=== PATIENT | male | born 1945 | race Caucasian/White ===

== ENCOUNTER 2025-06-29 11:44 | Observation (INO) | payer MEDICARE, SELFPAY ==
[2025-06-28 23:46] VITALS: BP 128/69
[2025-06-29] VITALS (7 sets, daily range): BP systolic 111–142; BP diastolic 61–76; PULSE 64–66; O2SAT 97; BMI 21.5; BMI 20.3
[2025-06-29 02:51] LABS: Hematocrit 37.7 % (39.0-52.0); Hemoglobin 12.3 g/dL (13.0-18.0); Mean Corp Hgb Conc. 32.6 g/dL (33.0-37.0); Mean Corpuscular Volume 92.4 fL (80.0-94.0); Nucleated Red Blood Cells % 0 % (-); Platelet Count 358 10^3/uL (130-400); Red Cell Dist. Width 13.9 % (11.5-14.5)
[2025-06-29 03:17] LABS: Blood Urea Nitrogen 18 mg/dl (9-20); Calcium 9.5 mg/dl (8.4-10.2); Carbon Dioxide 25 mmol/L (22-30); Chloride 107 mmol/L (98-107); Estimated Creatinine Clearance 50 ml/min; Glucose 96 mg/dl (70-99); Potassium 4.6 mmol/L (3.5-5.1); Sodium 138 mmol/L (135-145); eGFR > 60.00
--- NOTE | 2025-06-29 03:54 | ED.GENMED ---
History of Present Illness
<Griffin Clemens Jr., PA-C - Last Filed: 06/30/25 18:12>
General
Chief Complaint: Fall
Source: patient
Exam Limitations: none
Time Seen by Provider: 06/29/25 02:04
Nursing documentation reviewed up to this point in time: agreed with
History of Present Illness
History of Present Illness:
79-year-old male with past medical history of dementia CAD ambulatory dysfunction presenting to the emergency department today after a fall getting off the train today with his son hitting his right hip difficulty ambulating recently. Trouble
ambulating at baseline. Son requesting placement as well at this point.
Review of Systems
<Griffin Clemens Jr., PA-C - Last Filed: 06/30/25 18:12>
Review of Systems
Allergies reviewed?: Yes
All Other Systems: ROS reviewed and negative except as documented in HPI and ROS
Phy Exam
<Griffin Clemens Jr., PA-C - Last Filed: 06/30/25 18:12>
Physical Exam
Physical Exam:
GENERAL: Alert , in no apparent distress
EYE: pupils equal and reactive
NECK: Supple, no significant adenopathy.
ENT: o/p clr, mmm.
CARDIAC: Regular rate and rhythm .
LUNGS: Clear breath sounds bilaterally, no acute respiratory distress, no wheezes/rales/rhonchi
ABDOMEN: Soft, without focal tenderness, no r/g, no cvat
NEUROLOGICAL: Alert and oriented, no focal neuro deficits
SKIN: Warm and dry, skin intact.
MUSCULOSKELETAL: No edema, well perfused.
PSYCH: Normal and appropriate interaction.
Course
<Griffin Clemens Jr., PA-C - Last Filed: 06/30/25 18:12>
Orders/Labs/Results
Orders:
Orders
06/29/25 00:10
CR Hip - RT w/wo Pel 2-3 Vw* Urgent
Reason For Exam: Fall
Include a pelvis x-ray?: Yes
06/29/25 02:22
CT Pelvis W/o Iv Contrast Urgent
Comment:
Reason For Exam: right hip pain, cant ambulate, eval for occult fx
Physical Therapy Consult [Pt Eval And Treat] Urgent
Activity Level: Ambulate
06/29/25 02:44
BMP [Basic Metabolic Panel] Urgent
CBC/With Diff [Complete Blood Count/With Diff] Urgent
Magnesium Urgent
Comment: ADD ON
TSH Reflex To Free T4 Urgent
Comment: ADD ON
Vitamin B12 Urgent
Comment: ADD ON
06/29/25 04:45
Case Management Consult ONCE
Case Management Consult: Discharge Planning
06/29/25 Breakfast
Regular
At Your Request: Full Participation
Does patient need a safe tray?: No
06/29/25 09:14
Occupational Therapy Consult [Ot Eval And Treat] Urgent
06/29/25 Lunch
Regular
At Your Request: Limited, Application Support Developer Required
Does patient need a safe tray?: No
06/29/25 11:02
Admit/Transfer Patient As Directed
Co-Sign Provider:
Level of Care: Observation services
Assign to:: Medical/Surgical
Physician / Group: lizett ordoñez
Diagnosis: weakness, falls
Reason for Hospitalization: weakness, falls
Expected length of stay greater than two midnights?: Yes
ELOS- Estimated Length of Stay in days: 2
PRN Pain Medication Management As Directed
May give lesser potent ordered pain med per pt: Yes
preference::
Protocol:: Medication orders for pain may be administered in a
manner that supports deferring to patient preference
when the pt is:
- Requesting an ordered lesser potent pain medication.
Least to most potent pain medications are defined
as: acetaminophen < NSAID < tramadol < opioids
(morphine, oxycodone, hydromorphone).
- Requesting a lesser dose of the same medication IF
ORDERED.
- Requesting a less intrusive route of administration
if both routes are prescribed by the provider (PO <
IV).
06/29/25 11:04
Code Status As Directed
Resuscitation Status: Full Code
06/29/25 11:08
Add On- LAB Routine
Tests Added?: TSH w/ reflex T4, B12 level, Mg level
06/29/25 11:09
EKG [Electrocardiogram (*1)] Routine
Reason for Study: QTc Monitoring
06/29/25 11:59
Acetaminophen [Tylenol] 650 mg PO Q4HPRN PRN
Bisacodyl [Dulcolax] 10 mg RECTAL [id number] PRN
Docusate W/Senna [Senokot-S] 1 tablet PO BIDPRN PRN
Lidocaine [Lidocaine 4% Patch] 2 patch TOPICAL DAILY
Apply Lidocaine patch(s) to:: R hip, back
Ondansetron Injectable [Zofran] 4 mg IV Q6HPRN PRN
Oxycodone [Roxicodone] 5 mg PO Q4HPRN PRN
Polyethylene Glycol Powder [Miralax] 17 grams PO DAILYPRN PRN
06/29/25 11:59
Activity As Directed
Activity Level: As Tolerated
Vital Signs As Directed
Frequency: Per unit guidelines
DX Deep Vein Thrombosis Video Routine
06/29/25 18:00
Enoxaparin Sodium [Lovenox] 40 mg SC QPM
Abnormal Lab Results
06/29/25
02:44
RBC 4.08 L 10^6/uL
(4.70-6.10)
Hgb 12.3 L g/dL
(13.0-18.0)
Hct 37.7 L %
(39.0-52.0)
MCHC 32.6 L g/dL
(33.0-37.0)
Absolute Monos (auto) 0.9 H 10^3/uL
(0.1-0.6)
Lymphocytes % 16.4 L %
(20.5-51.1)
Monocytes % 12.1 H %
(1.7-9.3)
Magnesium 2.4 H mg/dl
(1.6-2.3)
06/29/25 02:44
06/29/25 02:44
Vital Signs
Initial and Last Documented VS:
Initial Vital Signs
Temp Pulse Resp BP Pulse Ox
97.4 F 75 16 128/69 99
06/28/25 23:46 06/28/25 23:46 06/28/25 23:46 06/28/25 23:46 06/28/25 23:46
Last Documented Vital Signs
Temp Pulse Resp BP Pulse Ox
98.2 F 70 18 119/55 98
06/30/25 11:00 06/30/25 11:00 06/30/25 11:00 06/30/25 11:00 06/30/25 11:00
<Dony Corrales, DO - Last Filed: 06/29/25 09:54>
Orders/Labs/Results
Orders:
Orders
06/29/25 00:10
CR Hip - RT w/wo Pel 2-3 Vw* Urgent
Reason For Exam: Fall
Include a pelvis x-ray?: Yes
06/29/25 02:22
CT Pelvis W/o Iv Contrast Urgent
Comment:
Reason For Exam: right hip pain, cant ambulate, eval for occult fx
Physical Therapy Consult [Pt Eval And Treat] Urgent
Activity Level: Ambulate
06/29/25 02:44
BMP [Basic Metabolic Panel] Urgent
CBC/With Diff [Complete Blood Count/With Diff] Urgent
Magnesium Urgent
Comment: ADD ON
TSH Reflex To Free T4 Urgent
Comment: ADD ON
Vitamin B12 Urgent
Comment: ADD ON
06/29/25 04:45
Case Management Consult ONCE
Case Management Consult: Discharge Planning
06/29/25 Breakfast
Regular
At Your Request: Full Participation
Does patient need a safe tray?: No
06/29/25 09:14
Occupational Therapy Consult [Ot Eval And Treat] Urgent
06/29/25 Lunch
Regular
At Your Request: Limited, Application Support Developer Required
Does patient need a safe tray?: No
06/29/25 11:02
Admit/Transfer Patient As Directed
Co-Sign Provider:
Level of Care: Observation services
Assign to:: Medical/Surgical
Physician / Group: lizett ordoñez
Diagnosis: weakness, falls
Reason for Hospitalization: weakness, falls
Expected length of stay greater than two midnights?: Yes
ELOS- Estimated Length of Stay in days: 2
PRN Pain Medication Management As Directed
May give lesser potent ordered pain med per pt: Yes
preference::
Protocol:: Medication orders for pain may be administered in a
manner that supports deferring to patient preference
when the pt is:
- Requesting an ordered lesser potent pain medication.
Least to most potent pain medications are defined
as: acetaminophen < NSAID < tramadol < opioids
(morphine, oxycodone, hydromorphone).
- Requesting a lesser dose of the same medication IF
ORDERED.
- Requesting a less intrusive route of administration
if both routes are prescribed by the provider (PO <
IV).
06/29/25 11:04
Code Status As Directed
Resuscitation Status: Full Code
06/29/25 11:08
Add On- LAB Routine
Tests Added?: TSH w/ reflex T4, B12 level, Mg level
06/29/25 11:09
EKG [Electrocardiogram (*1)] Routine
Reason for Study: QTc Monitoring
06/29/25 11:59
Acetaminophen [Tylenol] 650 mg PO Q4HPRN PRN
Bisacodyl [Dulcolax] 10 mg RECTAL [id number] PRN
Docusate W/Senna [Senokot-S] 1 tablet PO BIDPRN PRN
Lidocaine [Lidocaine 4% Patch] 2 patch TOPICAL DAILY
Apply Lidocaine patch(s) to:: R hip, back
Ondansetron Injectable [Zofran] 4 mg IV Q6HPRN PRN
Oxycodone [Roxicodone] 5 mg PO Q4HPRN PRN
Polyethylene Glycol Powder [Miralax] 17 grams PO DAILYPRN PRN
06/29/25 11:59
Activity As Directed
Activity Level: As Tolerated
Vital Signs As Directed
Frequency: Per unit guidelines
DX Deep Vein Thrombosis Video Routine
06/29/25 18:00
Enoxaparin Sodium [Lovenox] 40 mg SC QPM
Abnormal Lab Results
06/29/25
02:44
RBC 4.08 L 10^6/uL
(4.70-6.10)
Hgb 12.3 L g/dL
(13.0-18.0)
Hct 37.7 L %
(39.0-52.0)
MCHC 32.6 L g/dL
(33.0-37.0)
Absolute Monos (auto) 0.9 H 10^3/uL
(0.1-0.6)
Lymphocytes % 16.4 L %
(20.5-51.1)
Monocytes % 12.1 H %
(1.7-9.3)
Magnesium 2.4 H mg/dl
(1.6-2.3)
06/29/25 02:44
06/29/25 02:44
Vital Signs
Initial and Last Documented VS:
Initial Vital Signs
Temp Pulse Resp BP Pulse Ox
97.4 F 75 16 128/69 99
06/28/25 23:46 06/28/25 23:46 06/28/25 23:46 06/28/25 23:46 06/28/25 23:46
Last Documented Vital Signs
Temp Pulse Resp BP Pulse Ox
98.2 F 70 18 119/55 98
06/30/25 11:00 06/30/25 11:00 06/30/25 11:00 06/30/25 11:00 06/30/25 11:00
<Griffin Clemens Jr., PA-C - Last Filed: 06/30/25 18:12>
MDM/Problems Addressed
MDM/Problems Addressed:
79-year-old male presenting to the emergency department today with concerns of right hip pain after fall. Son also concerned that he has difficulty ambulating at baseline and is unsafe to go home. Here x-ray without signs of fracture. Patient had
a CT scan due to his significant difficulty with ambulation.
<Griffin Clemens Jr., PA-C - Last Filed: 06/30/25 18:12>
*Pulse Oximetry
SaO2: 99
Oxygen Mode of Delivery: Room air
Patient hypoxic: no (98)
*Critical Care Note
Total Time (30-74mins, 75-104mins- exclusive of procedures): Not Applicable
<Dony Corrales DO - Last Filed: 06/29/25 09:54>
Update Note
Update Note:
Case management unable to place from the emergency department. Will admit for placement
ED Attending Note
<Griffin Clemens Jr., PA-C - Last Filed: 06/30/25 18:12>
-
Portions of this chart may have been created with voice recognition software.� Occasional wrong word or��sound alike� substitutions may have occurred due to the inherent limitations of voice recognition software.
<Dony Corrales DO - Last Filed: 06/29/25 09:54>
ED Attending Note
Patient seen and examined by attending physician: Yes
I performed the substantive portion of visit, reviewed & personally made and approve the management plan that is documented in note by myself or COLE.: Yes
ED Attending Note:
I have seen and evaluated the patient with a [id number] encounter. I have spoken to the advance practicer provider and involved in the medical history, the physical exam, medical decision making.
Evaluation and management service: agree unless noted differently below.
Results interpretation: agree unless noted differently below.
Focused HPI: 79-year-old male presenting for evaluation of generalized weakness and fatigue and recent falls. He just moved up from [place] to live with family but family currently having trouble caring for him in the state
Physical exam: Sitting in bed comfortably. No acute distress
Medical Decision Making: Workup is negative from a trauma standpoint. Patient is well-appearing and nontoxic. Family is considering palliative care for short-term rehab until he can live with family. Will have case management and PT evaluate
Discharge Plan
Departure
Patient Disposition: Admit
Date of Disposition: 06/29/25
Time of Disposition: 09:54
Admit to: Med/Surg
Presentation/result/management discussed w/ accepting MD/DO: Hospitalist
Discharge Problem:
Weakness
Interventions
Interventions:
*Risk Screen - Suicide Last Done: 06/29/25 12:00
*General Assessment Last Done: 06/29/25 15:47
*ED COVID-19 Vaccine History Last Done: 06/29/25 12:00
*Nursing Disposition Last Done: 06/29/25 15:47
ED-Musculoskeletal Assessment Last Done: 06/29/25 00:57
ED- Neurological Assessment Last Done: 06/29/25 00:57
ED-Skin Assessment Last Done: 06/29/25 00:57
Discharge Date and Time
Discharge Date/Time: 06/29/25 15:49
--- NOTE | 2025-06-29 10:49 | CM ---
Addendum entered by Maria Del Rosario Rodriguez 06/29/25 17:30:
Per [facility] office, patient was admitted to SNF in April 2025; discharge transition date was 06/12/2025; Medicare coverage ended 06/14/2025
Still no response from text message sent to sonDelonte, @ #[phone]. Uable to leave voice mail; mail box full
Addendum entered by Maria Del Rosario Rodriguez 06/29/25 15:39:
Still unable to connect with son via phone; unable to leave a message.
Sent SNF referrals to [facility]; self pay if son is agreeable. If son is not willing/able to self pay, CM will offer Home Health/PT/OT; or contact '[facility]' liaison to assist with placement
Addendum entered by Maria Del Rosario Rodriguez 06/29/25 14:36:
Several attempts made to contact patient's son via phone; no answer; mail box full; unable to leave a message
Original Note:
Met with patient and son, Delonte, at the bedside in the ED
Pharmacy verified: [facility] @ [id number] [facility]
Verified legal address: [address] [place] [address] [id number], [place] [id number]
Patient's home is in [place]; Son was in the process of relocating him to [place], when he had a Fall.
Per son, patient was recently discharged from [facility] in [place], [place].
PLOF: patient ambulated with a cane or rolling walker; required assistance with personal care and ADLs.
Offered son the option of speaking with [facility] liasion to assist with placement.
In the event SNF was recommended, a list of SNF options were identified; Son's preferences are [facility]
Per Attending, admission status is Observation; patient does not quality for Medicare Waiver Program; and stable for discharge once placement can be arranged
Was unable to connect with patient's son via phone; he left the hospital; mailbox full; unable to leave a voice mail.
Sent him a text to call case managers to discuss discharge planning
Discharge plan to be determined; Case Management will support placement coordination once determined
--- NOTE | 2025-06-29 10:58 | HPS.HSE ---
Family Physician
-
Family Physician: Musa Watts DO
Chief Complaint
-
Weakness, falls
History of Present Illness
79-year-old male with a past medical history of prostate cancer, dementia, hypertension, hyperlipidemia, CAD, and ambulatory dysfunction was brought in by his son for right hip pain and weakness following a mechanical fall. Pelvis CT negative for
right hip fracture. Patient moved up to [place] from [place] to live with his son. His son did not know how weak he was, and brought him to the ER to be checked out after mechanical fall. Son requesting placement. Patient apparently was
recently released from a long term rehab in [place]. He does complain of new onset right hip pain and lower back pain since the fall. He denies chest pain, denies shortness of breath. No abdominal pain. No fever, no vomiting.
Medical History
Past Medical History
Past Medical History: Reports Other
Additional Past Medical History:
Prostate cancer
Essential hypertension
Hyperlipidemia
Coronary artery disease
Dementia
Ambulatory dysfunction
Past Surgical History: Reports Other
Additional Past Surgical History:
Left hip surgery
Social History
Alcohol: None
Drug: None
Family History
Family History: Not pertinent
Allergies / Home Medications
Allergies reflects when Allergies were last updated in [employer].
Home Medications with original date entered in [employer]
Allergy/Medication List:
Allergies
Allergy/AdvReac Type Severity Reaction Status Date / Time
No Known Allergies Allergy Unverified 06/29/25 10:02
Home Medications Table - record
�Medication �Instructions �Recorded �Confirmed
amlodipine 5 mg tablet 5 mg PO DAILY 06/29/25
ascorbic acid (vitamin C) 250 mg 250 mg PO DAILY 06/29/25
tablet (Vitamin C)
aspirin 325 mg tablet 325 mg PO DAILY 06/29/25
atorvastatin 40 mg tablet 40 mg PO DAILY 06/29/25
cholecalciferol (vitamin D3) 25 25 mcg PO DAILY 06/29/25
mcg (1,000 unit) tablet (Vitamin
D3)
cyanocobalamin (vitamin B-12) 500 500 mcg PO DAILY 06/29/25
mcg tablet (Vitamin B-12)
enzalutamide 40 mg tablet (Xtandi) 80 mg PO DAILY 06/29/25
tamsulosin 0.4 mg capsule 0.4 mg PO DAILY 06/29/25
Review of Systems
-
Unable to obtain full review of systems at this time due to: Dementia
Physical Exam
Vital Signs
Vital Signs
Temp Pulse Resp BP Pulse Ox
97.4 F 71 13 140/62 99
06/28/25 23:46 06/29/25 06:30 06/29/25 06:15 06/29/25 02:00 06/29/25 03:55
Physical Exam
General: No Apparent Distress
HEENT: NormoCephalic, Anicteric and Moist mucous membranes
Respiratory: Clear
Cardiac: S1/S2
GI: Soft, Non Tender, Non Distended and Normal Bowel Sounds
Musculoskeletal: No Clubbing, No Cyanosis and No Edema
Neuro: Awake, Alert and Oriented
Psych: Calm
Laboratory Results
-
06/29/25 02:44
06/29/25 02:44
Impression/Plan
-
HPI: 79-year-old male with a past medical history of prostate cancer, dementia, hypertension, hyperlipidemia, CAD, and ambulatory dysfunction was brought in by his son for right hip pain and weakness following a mechanical fall. Pelvis CT negative
for right hip fracture. Patient moved up to [place] from [place] to live with his son. His son did not know how weak he was, and brought him to the ER to be checked out after mechanical fall. Son requesting placement. Patient apparently was
recently released from a long term rehab in [place]. He does complain of new onset right hip pain and lower back pain since the fall. He denies chest pain, denies shortness of breath. No abdominal pain. No fever, no vomiting.
#Ambulatory dysfunction
#Weakness
#Mechanical falls
Pelvis CT negative for right hip fracture
Son requesting placement
PT/OT, case management on board
#Dementia, unclear type
Supportive care
#Essential hypertension
Continue amlodipine 5 mg daily
#Prostate cancer
Unclear what treatment he has had for this, pelvis CT does show 6.3 mm bladder calculus versus exophytic calcified nodule associated with the base of the prostate gland
Continue Xtandi, Flomax, outpatient follow-up
#Coronary artery disease
#Hyperlipidemia
Continue aspirin, statin
DVT prophylaxis�subcu Lovenox
Full code
Called son twice, he did not sisal picker, and unable to leave a message as the voicemail box was full
Total time spent to see the patient on the floor, examine the patient, review data and lab results, discuss treatment plan with patient, nursing staff around 65 minutes.
[2025-06-29 12:09] LABS: Magnesium 2.4 mg/dl (1.6-2.3)
[2025-06-29] MEDS: LIDOCAINE 4% PATCH 2 PATCH TOPICAL (12:50)
[2025-06-29 13:14] LABS: Vitamin B12 503 pg/ml (239-931)
[2025-06-29] MEDS: LIPITOR 40 MG PO (17:58)
[2025-06-29] MEDS: FLOMAX 0.4 MG PO (17:58)
[2025-06-29] MEDS: NORVASC 5 MG PO (17:59)
[2025-06-29] MEDS: LOVENOX 40 MG SC (17:59)
[2025-06-30] MEDS: LIPITOR 40 MG PO (08:42)
[2025-06-30] MEDS: FLOMAX 0.4 MG PO (08:42)
[2025-06-30] MEDS: NORVASC 5 MG PO (08:42)
[2025-06-30] MEDS: LIDOCAINE 4% PATCH 2 PATCH TOPICAL (08:42)
--- NOTE | 2025-06-30 09:05 | W.PN.HOSP.TC ---
Today's Communication/Plan
-
Discharge to short-term rehab when bed available
Assessment / Plan
Assessment / Plan
HPI: 79-year-old male with a past medical history of prostate cancer, dementia, hypertension, hyperlipidemia, CAD, and ambulatory dysfunction was brought in by his son for right hip pain and weakness following a mechanical fall. Pelvis CT negative
for right hip fracture. Patient moved up to [place] from [place] to live with his son. His son did not know how weak he was, and brought him to the ER to be checked out after mechanical fall. Son requesting placement. Patient apparently was
recently [facility] a [facility] in [place]. He does complain of new onset right hip pain and lower back pain since the fall. He denies chest pain, denies shortness of breath. No abdominal pain. No fever, no vomiting.
#Ambulatory dysfunction
#Weakness
#Mechanical falls
#Lower back pain and right hip pain from fall
Pelvis CT negative for right hip fracture, continue lidocaine patches scheduled and Tylenol as needed
Son requesting placement. PT/OT, case management on board
Discharge to short-term rehab when bed available
#Dementia, unclear type
Supportive care
#Essential hypertension
Continue amlodipine 5 mg daily
#Prostate cancer
Unclear what treatment he has had for this, pelvis CT does show 6.3 mm bladder calculus versus exophytic calcified nodule associated with the base of the prostate gland
Continue Xtandi, Flomax, outpatient follow-up
#Coronary artery disease
#Hyperlipidemia
Continue aspirin, statin
DVT prophylaxis�subcu Lovenox
Full code
Updated son at bedside 06/30
Total time spent to see the patient on the floor, examine the patient, review data and lab results, discuss treatment plan with patient, nursing staff around 40 minutes.
Physical Exam
General: No acute distress
HEENT: Normocephalic, Atraumatic, EOMI, MMM
Respiratory: Clear to Auscultation bilaterally
Cardiac: Normal S1/S2, Regular Rate and Rhythm
GI: Soft, Nontender, Nondistended, Normal Bowel Sounds
Extremities: No Clubbing, Cyanosis, or Edema
Neuro: Pleasantly confused
Psych: Calm, Cooperative
Anticipated Discharge: Within 24 hours
Subjective/Interval History
-
Date of Service: June 30, 2025
Patient reports that the lidocaine patch is helping his lower back pain and his right hip pain. He denies chest pain, denies shortness of breath. No fever, no vomiting.
Objective Data
-
Vital Signs:
Vital Signs
Temp Pulse Resp BP Pulse Ox
98.1 F 64 18 111/61 97
06/29/25 23:00 06/29/25 23:00 06/29/25 23:00 06/29/25 23:00 06/29/25 23:00
I&O
06/29/25 06/30/25 07/01/25
06:59 06:59 06:59
Intake Total 240 / 240
Balance 240 / 240
[2025-06-30 09:30] VITALS: BP 101/59; BP 110/52; BP 111/46
[2025-06-30 11:00] VITALS: BP 119/55
--- NOTE | 2025-06-30 11:22 | CM ---
science manager met with patient and son at bedside, patient's son states that patient was in a skilled facility in [place] for 3 weeks and stayed 2 months, son brought patient to this area from [place], caseworker protective services explained to patient's son
that patient was admitted under OBS and does not met criteria for skilled placement, patient does not qualify for [facility] program, caseworker protective services explained to patient's son and he reports that that caseworker protective services can send referrals to skilled facilities
in area and he will have to private pay. Referrals sent to [facility], [facility], [facility], [facility], and [facility].
Plan; Skilled placement private patient.
[2025-06-30] MEDS: LOVENOX 40 MG SC (18:10)
[2025-06-30 23:29] VITALS: BP 103/57
[2025-07-01] MEDS: LIDOCAINE 4% PATCH 2 PATCH TOPICAL (08:27)
[2025-07-01] MEDS: FLOMAX 0.4 MG PO (08:27)
[2025-07-01] MEDS: LIPITOR 40 MG PO (08:27)
[2025-07-01] MEDS: NORVASC 5 MG PO (08:28)
--- NOTE | 2025-07-01 10:12 | W.PN.HOSP.TC ---
Today's Communication/Plan
-
Discharge to short-term rehab when bed available
Assessment / Plan
Assessment / Plan
HPI: 79-year-old male with a past medical history of prostate cancer, dementia, hypertension, hyperlipidemia, CAD, and ambulatory dysfunction was brought in by his son for right hip pain and weakness following a mechanical fall. Pelvis CT negative
for right hip fracture. Patient moved up to [place] from [place] to live with his son. His son did not know how weak he was, and brought him to the ER to be checked out after mechanical fall. Son requesting placement. Patient apparently was
recently released from a snf rehab in [place]. He does complain of new onset right hip pain and lower back pain since the fall. He denies chest pain, denies shortness of breath. No abdominal pain. No fever, no vomiting.
#Ambulatory dysfunction
#Weakness
#Mechanical falls
#Lower back pain and right hip pain from fall
Pelvis CT negative for right hip fracture, continue lidocaine patches scheduled and Tylenol as needed
Son requesting placement. PT/OT, case management on board
Discharge to short-term rehab when bed available
#Dementia, unclear type
Supportive care
#Essential hypertension
Continue amlodipine 5 mg daily
#Prostate cancer
Unclear what treatment he has had for this, pelvis CT does show 6.3 mm bladder calculus versus exophytic calcified nodule associated with the base of the prostate gland
Continue Xtandi, Flomax, outpatient follow-up
#Coronary artery disease
#Hyperlipidemia
Continue aspirin, statin
DVT prophylaxis�subcu Lovenox
Full code
Updated son at bedside 06/30
Total time spent to see the patient on the floor, examine the patient, review data and lab results, discuss treatment plan with patient, nursing staff around 35 minutes.
Physical Exam
General: No acute distress
HEENT: Normocephalic, Atraumatic, EOMI, MMM
Respiratory: Clear to Auscultation bilaterally
Cardiac: Normal S1/S2, Regular Rate and Rhythm
GI: Soft, Nontender, Nondistended, Normal Bowel Sounds
Extremities: No Clubbing, Cyanosis, or Edema
Neuro: Pleasantly confused
Psych: Calm, Cooperative
Anticipated Discharge: Within 24 hours
Subjective/Interval History
-
Date of Service: July 01, 2025
Patient reports that his lower back pain and right hip pain are controlled with lidocaine patches. Denies chest pain, denies shortness of breath. No fever, no vomiting.
Objective Data
-
Vital Signs:
Vital Signs
Temp Pulse Resp BP Pulse Ox
97.3 F 70 16 103/57 96
06/30/25 23:29 06/30/25 23:29 06/30/25 23:29 06/30/25 23:29 06/30/25 23:29
I&O
06/30/25 07/01/25 07/02/25
06:59 06:59 06:59
Intake Total 240 / 240 240 / 240
Balance 240 / 240 240 / 240
[2025-07-01 11:00] VITALS: BP 125/54
--- NOTE | 2025-07-01 16:45 | CM ---
Patient's brother and [id number] at the bedside; [id number] reported that patient's home in [place] was sold.
Patient's son, Delonte, arrived @ ~1615. Case Management explained SNF referral status and need to submit financial application.
Motorcoach Driver [facility] to [facility] if family is agreeable to private pay. They can offer their rapid SNF rate, $350/day for 14 days; and
[facility] will accept self-pay; but would need a financial application as well as 2 weeks payment prior to admission
List of [facility] facilities from Medicare.gov website provided
Case Management will continue to support and coordinate placement
[2025-07-01] MEDS: LOVENOX 40 MG SC (17:48)
[2025-07-01 23:03] VITALS: BP 93/47
[2025-07-02 07:00] VITALS: BP 118/61; BP 124/57; BP 98/62; PULSE 64; PULSE 68; PULSE 80
[2025-07-02] MEDS: LIDOCAINE 4% PATCH 2 PATCH TOPICAL (08:01)
[2025-07-02] MEDS: FLOMAX 0.4 MG PO (08:01)
[2025-07-02] MEDS: NORVASC 5 MG PO (08:02)
[2025-07-02] MEDS: LIPITOR 40 MG PO (08:02)
--- NOTE | 2025-07-02 09:03 | CM ---
Addendum entered by Rosibel Birmingham 07/02/25 15:12:
risk compliance manager met with patient's sonDelonte along with patient and explained to epi's sonDelonte that patient could go to a skilled facility and pay $350 per day for 14 days, son feels that patient does not need a skilled facility and states that
he will take patient home, per son he will pick patient up tomorrow at 11:30am, his final plan is to take patient back to [place], correctional counselor/case manager agreed that this is the best option as patient resides in [place] and maybe able to use state funds for
placement in future.
Plan; Discharge home with sonDelonte, 11:30am picker/puller 07/03/25.
Addendum entered by Rosibel Birmingham 07/02/25 14:14:
Per family patient was at [facility], [address] in [place] and patient's sonDelonte took patient out of facility and brought him to [facility], correctional counselor/case manager left a message for Jarocho in
admissions at [facility] in [place], correctional counselor/case manager reached out to [facility] to review case to see if they could assist however their office is closed today due to holiday.
At this time patient's only option is to pay for rapid skilled placement at $350 per day at [facility] for 2 weeks, correctional counselor/case manager attempted to speak with patient's sonDelonte, no answer.
Addendum entered by Rosibel Birmingham 07/02/25 13:19:
risk compliance manager received a call from [place] patient's sister in law, and she stated that they are unable to pay for patient to go to a skilled facility.
Addendum entered by Rosibel Birmingham 07/02/25 11:33:
Patient has been accepted at [facility] for rapid skilled placement $350 per day, X 14 days, call placed to patient's son still no answer, call placed to patient's daughter in law, Son Delonte's ex-, Trudy and her Travon,
and she reported that she would get in touch with patient's brother, Gus Guevara at [facility] in [place] and have him assist with placement for patient as patient will be cleared for discharge.
Original Note:
Call placed to patient's son Delonte this am, no answer, voice mail is full, at this time only placement available to patient is private pay, will continue to attempt to locate patient' son, Delonte.
Plan; Placement if possible, private pay.
[2025-07-02 14:12] VITALS: BP 112/73; O2SAT 98
--- NOTE | 2025-07-02 14:43 | W.PN.HOSP.TC ---
Addendum entered and electronically signed by Santy Tsai MD 07/02/25 15:49:
Orthostatic +
will start compression stocking
abdominal binder
ivf
may need midodrine if persistent
Original Note:
Today's Communication/Plan
-
Assessment / Plan
Assessment / Plan
NAD
Scleral Anicteric
MMM
No JVD
CTABL
RRR, S1/S2
Soft, NT, ND, BS+
Warm, Dry
AAOx3
Calm
HPI: 79-year-old male with a past medical history of prostate cancer, dementia, hypertension, hyperlipidemia, CAD, and ambulatory dysfunction was brought in by his son for right hip pain and weakness following a mechanical fall. Pelvis CT negative
for right hip fracture. Patient moved up to [place] from [place] to live with his son. His son did not know how weak he was, and brought him to the ER to be checked out after mechanical fall. Son requesting placement. Patient apparently was
recently [facility] from [facility] in [place]. He does complain of new onset right hip pain and lower back pain since the fall. He denies chest pain, denies shortness of breath. No abdominal pain. No fever, no vomiting.
#Ambulatory dysfunction
#Weakness
#Mechanical falls
#Lower back pain and right hip pain from fall
Pelvis CT negative for right hip fracture, continue lidocaine patches scheduled and Tylenol as needed
Son requesting placement. PT/OT, case management on board
Discharge to short-term rehab when bed available
#Dementia, unclear type
Supportive care
#Essential hypertension
Continue amlodipine 5 mg daily
#Prostate cancer
Unclear what treatment he has had for this, pelvis CT does show 6.3 mm bladder calculus versus exophytic calcified nodule associated with the base of the prostate gland
Continue Xtandi, Flomax, outpatient follow-up
#Coronary artery disease
#Hyperlipidemia
Continue aspirin, statin
DVT prophylaxis�subcu Lovenox
Full code
Case management attempting to get in touch with son however mailbox is full with not answering
Planning for SNF
Anticipated Discharge: Within 24 hours
Subjective/Interval History
-
Date of Service: July 02, 2025
Seen and examined. No new complaints. No acute overnight events.
Objective Data
-
Vital Signs:
Vital Signs
Temp Pulse Resp BP Pulse Ox
98 F 64 16 93/47 97
07/02/25 07:00 07/01/25 23:03 07/01/25 23:03 07/01/25 23:03 07/02/25 08:15
I&O
07/01/25 07/02/25 07/03/25
06:59 06:59 06:59
Intake Total 240 / 240 100 / 100
Output Total 100 / 100
Balance 240 / 240 0 / 0
[2025-07-02 15:37] VITALS: BP 113/54
[2025-07-02] MEDS: NSS 1000 IV (16:20)
[2025-07-02] MEDS: LOVENOX 40 MG SC (17:15)
[2025-07-02 23:05] VITALS: BP 102/57; BP 105/54; BP 93/51; PULSE 73; PULSE 88
[2025-07-03] MEDS: NSS 1000 IV (05:10)
--- NOTE | 2025-07-03 05:12 | PTCARENOTE ---
pt was pleasant all night. no c/o pain. stated he is ready to get out of here
[2025-07-03 08:26] VITALS: BP 112/62; BP 119/59; BP 119/60; PULSE 66; PULSE 67; PULSE 80
[2025-07-03] MEDS: NORVASC 5 MG PO (09:01)
[2025-07-03] MEDS: FLOMAX 0.4 MG PO (09:02)
[2025-07-03] MEDS: LIDOCAINE 4% PATCH 2 PATCH TOPICAL (09:02)
[2025-07-03] MEDS: LIPITOR 40 MG PO (09:02)
--- NOTE | 2025-07-03 09:36 | W.DCSUMMARY ---
Discharge Summary
Discharge Data
Date of Admission: 06/29/25
Date of Discharge: 07/03/25
-
Pending Results: No
Hospital Course
79-year-old male with a past medical history of prostate cancer, dementia, hypertension, hyperlipidemia, CAD, and ambulatory dysfunction
Presented from home after family unable to care for him due to multiple falls. Orthostatic positive. Started on IVF along with compression stocking and abdominal binder with resolution of orthostatics. Evaluated by physical therapy recommended SNF
unfortunately unable to place due to monetary consquences and has used up total number of Snf days. Therefore, will discharge home.
Pelvic Xray
IMPRESSION:
No acute pelvic or hip fractures appreciated.
3 cannulated screws within the left femoral neck related to prior fracture.
Pelvic CT
IMPRESSION:
Osseous demineralization.
No fracture identified. No dislocation. If high clinical suspicion for occult fracture, consider further evaluation with MRI.
Nonspecific mild presacral soft tissue edema. Mild urinary bladder wall thickening. Possible 6.3 mm bladder calculus versus exophytic calcified nodule associated with the base of the prostate gland.
Asymmetric soft tissue thickening extending posteriorly and laterally from the right seminal vesicle. Possibly infectious or inflammatory. Neoplasm, such as prostate neoplasm invading the seminal vesicle cannot be entirely excluded in the proper
clinical setting. Recommend correlation with PSA and comparison with any prior examination not available at this facility.
Sigmoid diverticulosis without acute diverticulitis.
The examination was performed after-hours on an emergency basis, with initial preliminary interpretation provided by [facility].
In accordance with Act 112, known as the Patient Test Results Information Act, a letter will be sent to the patient which notifies the patient that a significant abnormality may exist. The letter will be sent within approximately 20 days of the
date the results were sent to the ordering health care practitioner.
Seen and examined on the day of discharged which is 07/03
No new complaints. No acute overnight events
Orthostatics resovled
Does not want to wear abd binder
NAD
Scleral Anicteric
MMM
No JVD
CTABL
RRR, S1/S2
Soft, NT, ND, BS+
Warm, Dry
AAOx3
Calm
More than 30 minutes spent in discharge including
Final examination of the patient
Summarizing hospital stay
Instructions for continuing care to all relevant caregivers
Preparation of discharge records, prescriptions, and referral forms
Total time spent (in minutes): 33mins
Discharge Plan
-
Patient Disposition: Home with Home Care
Discharge Diagnosis/Procedures: Mechanical falls
Orthostasis
Condition: Fair
Diet: As tolerated
Activity: As tolerated
Activity Restrictions/Additional Instructions:
Presented from home after family unable to care for him due to multiple falls. Orthostatic positive. Started on IVF along with compression stocking and abdominal binder with resolution of orthostatics. Evaluated by physical therapy recommended SNF
unfortunately unable to place due to monetary consquences and has used up total number of Snf days. Therefore, will discharge home.
Pelvic Xray
IMPRESSION:
No acute pelvic or hip fractures appreciated.
3 cannulated screws within the left femoral neck related to prior fracture.
Pelvic CT
IMPRESSION:
Osseous demineralization.
No fracture identified. No dislocation. If high clinical suspicion for occult fracture, consider further evaluation with MRI.
Nonspecific mild presacral soft tissue edema. Mild urinary bladder wall thickening. Possible 6.3 mm bladder calculus versus exophytic calcified nodule associated with the base of the prostate gland.
Asymmetric soft tissue thickening extending posteriorly and laterally from the right seminal vesicle. Possibly infectious or inflammatory. Neoplasm, such as prostate neoplasm invading the seminal vesicle cannot be entirely excluded in the proper
clinical setting. Recommend correlation with PSA and comparison with any prior examination not available at this facility.
Sigmoid diverticulosis without acute diverticulitis.
The examination was performed after-hours on an emergency basis, with initial preliminary interpretation provided by [facility].
In accordance with Act 112, known as the Patient Test Results Information Act, a letter will be sent to the patient which notifies the patient that a significant abnormality may exist. The letter will be sent within approximately 20 days of the
date the results were sent to the ordering health care practitioner.
Referrals:
Musa Watts DO [Family Provider, [facility]]
Prescriptions:
Continued
atorvastatin 40 mg Tablet
40 mg PO DAILY
aspirin 325 mg Tablet
325 mg PO DAILY
amlodipine 5 mg Tablet
5 mg PO DAILY
cyanocobalamin (vitamin B-12) [Vitamin B-12] 500 mcg Tablet
500 mcg PO DAILY
tamsulosin 0.4 mg Capsule
0.4 mg PO DAILY
ascorbic acid (vitamin C) [Vitamin C] 250 mg Tablet
250 mg PO DAILY
cholecalciferol (vitamin D3) [Vitamin D3] 25 mcg (1,000 unit) Tablet
25 mcg PO DAILY
Xtandi 40 mg Tablet
80 mg PO DAILY
Discharge Orders:
Discharge Patient (As Directed); Ordered 07/03/25
Ordered By: Santy Tsai
Discharge Date and Time
Print Language: ALBANIAN
--- NOTE | 2025-07-03 09:46 | CM ---
Addendum entered by Rosibel Birmingham 07/03/25 12:15:
solutions manager reached out to [facility] to alert them on patient and have them provide possible supports for patient. solutions manager spoke with Kimberlyn at [facility] and provided her with patient information name and date
of , senior case manager informed [facility] that patient's son was offered emergency skilled placement along with patient's ex daughter in law, Trudy, patient's brother, Gus and his Michelle were also notified and made aware
that senior case manager could place patient at [facility] through rapid skilled placement but all family members declined skilled placement.
Original Note:
Chart reviewed and patient's son was offered rapid skilled placement at [facility], cost is $350 per day for 14 days, patient's son declined skilled placement. Patient is not a resident of [facility] however senior case manager will reach out to
[facility] to make them aware of patient and request that the follow up with patient.
Plan; Son is taking patient home today, per notes patient is anxious to leave hospital.
--- NOTE | 2025-07-03 09:53 | PTCARENOTE ---
Pt's son here and pt assisted to dress by this nurse and be discharged. Pt's son Delonte stated he and his father were heading to the train station and then to [facility]. Delonte has a wheelchair to assist patient however, wheelchair full of belongings from
son and pt. Suggested to son that his father(the pt) should be sitting in the wheelchair once discharged from the hospital. Son said he was aware. Transport took patient to the [facility] area for discharge.
== END 2025-07-03 10:02 | disposition home or self-care (01) ==
LOC: 4 WEST ACU 11:44
PROVIDERS: Physician Assistant; ADMITTING PHYSICIAN Family Medicine; ATTENDING PHYSICIAN Hospitalist; EMERGENCY PHYSICIAN Student in an Organized Health Care Education/Training Program; FAMILY PHYSICIAN Family Medicine
DX: R29.6 Repeated falls (principal); M25.551 Pain in right hip; W01.0XXA Fall on same level from slipping, tripping and stumbling without subsequent striking against object, initial encounter; Y93.01 Activity, walking, marching and hiking; Y92.89 Other specified places as the place of occurrence of the external cause; F03.90 Unspecified dementia, unspecified severity, without behavioral disturbance, psychotic disturbance, mood disturbance, and anxiety; I25.10 Atherosclerotic heart disease of native coronary artery without angina pectoris; R53.1 Weakness; I10 Essential (primary) hypertension; E78.5 Hyperlipidemia, unspecified; K57.30 Diverticulosis of large intestine without perforation or abscess without bleeding; N32.89 Other specified disorders of bladder; R60.0 Localized edema; Z79.899 Other long term (current) drug therapy; Z79.82 Long term (current) use of aspirin; Z85.46 Personal history of malignant neoplasm of prostate
CPT/HCPCS: 72192; 73502; 80048; 82607; 83735; 84443; 85025; 93005; 97530; 97535; G0378